=== PATIENT | male | born 1965 | race Caucasian/White ===

== ENCOUNTER 2018-06-08 16:53 | Inpatient (IN) | payer BC ==
[~2018-06-08] VITALS: Ht 177.8 cm; Wt 90.9 kg
[2018-06-08 17:01] VITALS: Ht 177.8 cm; Wt 90.9 kg
[2018-06-08 17:29] LABS: BASOPHIL % 0.7 % (0-2); PLATELET COUNT 165 x10^3mcL (130-400); RED CELL DISTRIBUTION WIDTH 14.3 % (11.5-14.5)
[2018-06-08 17:49] LABS: CALCIUM 8.3 mg/dL (8.5-10.1); CARBON DIOXIDE 23.9 mmol/L (21-32); CHLORIDE SERUM 105 mmol/L (98-107); CREATININE SERUM 0.9 mg/dL (0.7-1.3); GFR1 > 60 mL/min; GLUCOSE SERUM 95 mg/dL (74-106); POTASSIUM SERUM 3.9 mmol/L (3.5-5.1); SODIUM SERUM 143 mmol/L (136-145)
[2018-06-08 17:53] LABS: ALBUMIN 4.4 g/dL (3.4-5.0); ALKALINE PHOSPHATASE 167 U/L (46-116); ALT/SGPT 59 U/L (16-63); AST/SGOT 60 U/L (15-37); BILIRUBIN TOTAL 1.6 mg/dL (0.20-1.00); TOTAL PROTEIN, SERUM 7.7 g/dL (6.4-8.2)
[2018-06-08] MEDS ORDERED: ATENOLOL25 MG PO (19:36)
[2018-06-08] MEDS ORDERED: ASPIR 8181 MG PO (19:36)
[2018-06-08 20:22] VITALS: BP 146/74
[2018-06-08 20:28] LABS: MAGNESIUM 2.1 mg/dL (1.8-2.4); PHOSPHOROUS 3.7 mg/dL (2.5-4.9)
[2018-06-08 20:32] LABS: CHOLESTEROL/HDL RATIO 6.8
[2018-06-08 20:35] LABS: T3 TOTAL 0.68 ng/mL
[2018-06-08 20:55] LABS: FREE T4 0.82 ng/dL (0.76-1.46); FREE THYROXINE INDEX 2.4 ug/dL (1.4-4.5); T4(THYROXINE) 6.8 ug/dL (4.7-13.3)
[2018-06-09 05:01] VITALS: BP 141/78
[2018-06-09 06:03] LABS: microscopic required? YES; urine erythrocyte NEGATIVE (NEGATIVE)
[2018-06-09 06:20] LABS: AMPHETAMINE QUAL UR NONE DETECTED (See below)
[2018-06-09 06:31] LABS: BASOPHIL % 0 % (0-2); PLATELET COUNT 112 x10^3mcL (130-400); RED CELL DISTRIBUTION WIDTH 14.6 % (11.5-14.5)
[2018-06-09 07:17] LABS: CALCIUM 7.8 mg/dL (8.5-10.1); CARBON DIOXIDE 19.6 mmol/L (21-32); CHLORIDE SERUM 102 mmol/L (98-107); CREATININE SERUM 0.8 mg/dL (0.7-1.3); GFR1 > 60 mL/min; GLUCOSE SERUM 134 mg/dL (74-106); POTASSIUM SERUM 4.2 mmol/L (3.5-5.1); SODIUM SERUM 139 mmol/L (136-145)
[2018-06-09 08:30] VITALS: BP 152/81
[2018-06-09 09:34] VITALS: BP 141/78
[2018-06-09 12:39] VITALS: BP 118/65
[2018-06-09 18:16] VITALS: BP 120/58
[2018-06-09 20:42] VITALS: BP 135/71
[2018-06-10 06:15] VITALS: BP 119/69
[2018-06-10 06:58] LABS: CALCIUM 8.2 mg/dL (8.5-10.1); CARBON DIOXIDE 24.6 mmol/L (21-32); CHLORIDE SERUM 103 mmol/L (98-107); CREATININE SERUM 0.9 mg/dL (0.7-1.3); GFR1 > 60 mL/min; GLUCOSE SERUM 160 mg/dL (74-106); MAGNESIUM 1.9 mg/dL (1.8-2.4); PHOSPHOROUS 2.3 mg/dL (2.5-4.9); POTASSIUM SERUM 4.3 mmol/L (3.5-5.1); SODIUM SERUM 139 mmol/L (136-145)
[2018-06-10 07:20] LABS: BASOPHIL % 0 % (0-2); RED CELL DISTRIBUTION WIDTH 14.9 % (11.5-14.5)
[2018-06-10 07:22] LABS: PLATELET COUNT 89 x10^3mcL (130-400)
[2018-06-10 08:59] VITALS: BP 140/78
[2018-06-10] MEDS ORDERED: LAC PO (12:21)
[2018-06-10] MEDS ORDERED: LEVAQUIN500 M1 PO (12:21)
[2018-06-10] MEDS ORDERED: PRE20 PO (12:22)
[2018-06-10] MEDS ORDERED: PREDNISONE20 MG PO (12:23)
[2018-06-10] MEDS ORDERED: PROAIR HFA8.5 GM IH (12:24)
[2018-06-10] MEDS ORDERED: PREDNISONE10 MG PO (12:24)
[2018-06-10] MEDS ORDERED: ATENOLOL25 MG PO (12:25)
[2018-06-10 12:42] VITALS: BP 140/78
[2018-06-10 14:02] VITALS: BP 138/76
== END 2018-06-10 14:33 | disposition home or self-care (01) | DRG 190 ==
LOC: ED 16:53 → DU 19:30
PROVIDERS: Emergency Medicine; Internal Medicine
DX: J44.0 Chronic obstructive pulmonary disease with (acute) lower respiratory infection (principal); J18.9 Pneumonia, unspecified organism; E87.2 Acidosis; J44.1 Chronic obstructive pulmonary disease with (acute) exacerbation; F17.210 Nicotine dependence, cigarettes, uncomplicated; R74.0 Nonspecific elevation of levels of transaminase and lactic acid dehydrogenase [LDH]; E83.51 Hypocalcemia; F41.0 Panic disorder [episodic paroxysmal anxiety]; Z72.89 Other problems related to lifestyle; Z95.0 Presence of cardiac pacemaker; Z82.49 Family history of ischemic heart disease and other diseases of the circulatory system; Z80.1 Family history of malignant neoplasm of trachea, bronchus and lung; E78.5 Hyperlipidemia, unspecified; E80.6 Other disorders of bilirubin metabolism; I11.0 Hypertensive heart disease with heart failure; I50.811 Acute right heart failure; K80.20 Calculus of gallbladder without cholecystitis without obstruction; F41.9 Anxiety disorder, unspecified
CPT/HCPCS: 36600; 83880; 84439; 94150; J0456; J0696; J1200; J1885; J1956; J2060; J2405; J2920; J2930; J7030; J7050; J7613; J7620; J7626; Q0092; Q9967

== ENCOUNTER 2018-08-05 17:28 | Emergency (ER) | payer BC ==
[~2018-08-05] VITALS: Ht 177.8 cm; Wt 86.2 kg
[~2018-08-05 17:28] MED LIST: ASPIR 8181 MG PO; ATENOLOL25 MG PO; LAC PO; LEVAQUIN500 M1 PO; PRE20 PO; PREDNISONE10 MG PO; PREDNISONE20 MG PO; PROAIR HFA8.5 GM IH
[2018-08-05 17:38] VITALS: BP 147/86; Ht 177.8 cm; Wt 86.2 kg
== END 2018-08-05 21:09 | disposition left against medical advice (07) ==
LOC: ED 17:28
DX: Z53.21 Procedure and treatment not carried out due to patient leaving prior to being seen by health care provider (principal)

== ENCOUNTER 2018-10-16 08:58 | Inpatient (IN) | payer BC ==
[~2018-10-16] VITALS: Ht 177.8 cm; Wt 93.4 kg
[2018-10-16 09:05] VITALS: Ht 177.8 cm; Wt 93.4 kg
[2018-10-16 09:41] LABS: BASOPHIL % 0.6 % (0-2)
[2018-10-16 09:47] LABS: PLATELET COUNT 110 x10^3mcL (130-400); RED CELL DISTRIBUTION WIDTH 14.8 % (11.5-14.5)
[2018-10-16 09:57] LABS: microscopic required? NO
[2018-10-16 10:11] LABS: ALBUMIN 4.1 g/dL (3.4-5.0); ALKALINE PHOSPHATASE 152 U/L (46-116); ALT/SGPT 66 U/L (16-63); AMYLASE 48 U/L (25-115); AST/SGOT 68 U/L (15-37); BILIRUBIN TOTAL 1.45 mg/dL (0.20-1.00); CALCIUM 8.4 mg/dL (8.5-10.1); CARBON DIOXIDE 26.3 mmol/L (21-32); CHLORIDE SERUM 109 mmol/L (98-107); CHOLESTEROL 199 mg/dL (<200); CREATININE SERUM 0.8 mg/dL (0.7-1.3); GFR1 > 60 mL/min; GLUCOSE SERUM 105 mg/dL (74-106); HDL CHOLESTEROL 35 mg/dL (40-60); LIPASE 114 IU/L (73-393); POTASSIUM SERUM 3.8 mmol/L (3.5-5.1); SODIUM SERUM 145 mmol/L (136-145); TOTAL PROTEIN, SERUM 7.5 g/dL (6.4-8.2)
[2018-10-16 10:29] LABS: UA SPECIFIC GRAVITY <=1.005 (1.005-1.035); urine erythrocyte NEGATIVE (NEGATIVE)
[2018-10-16 10:38] LABS: AMPHETAMINE QUAL UR NONE DETECTED (See below)
[2018-10-16] MEDS ORDERED: ATIVAN2 MG (11:39)
[2018-10-16 13:57] LABS: T3 TOTAL 0.85 ng/mL
[2018-10-16 14:01] VITALS: BP 126/77
[2018-10-16 14:05] LABS: MAGNESIUM 1.7 mg/dL (1.8-2.4); PHOSPHOROUS 3.7 mg/dL (2.5-4.9)
[2018-10-16 14:20] LABS: FREE T4 1.02 ng/dL (0.76-1.46); FREE THYROXINE INDEX 2.1 ug/dL (1.4-4.5); T4(THYROXINE) 5.9 ug/dL (4.7-13.3)
[2018-10-16 17:18] VITALS: BP 114/69
[2018-10-16 20:41] VITALS: BP 111/62
[2018-10-17 05:17] VITALS: BP 130/73
[2018-10-17 06:40] LABS: CALCIUM 9.2 mg/dL (8.5-10.1); CARBON DIOXIDE 26.3 mmol/L (21-32); CHLORIDE SERUM 104 mmol/L (98-107); GFR1 > 60 mL/min; GLUCOSE SERUM 99 mg/dL (74-106); MAGNESIUM 1.9 mg/dL (1.8-2.4); PHOSPHOROUS 4.4 mg/dL (2.5-4.9); SODIUM SERUM 141 mmol/L (136-145)
[2018-10-17 08:03] LABS: BASOPHIL % 0.4 % (0-2); PLATELET COUNT 90 x10^3mcL (130-400); RED CELL DISTRIBUTION WIDTH 15.2 % (11.5-14.5)
[2018-10-17 08:35] VITALS: BP 131/80
[2018-10-17 12:22] VITALS: BP 142/84
[2018-10-17] MEDS ORDERED: ATIVAN2 MG PO (14:32)
[2018-10-17] MEDS ORDERED: FOL1 PO (14:34)
[2018-10-17] MEDS ORDERED: THERA-M CAPLET1 EACH PO (14:35)
[2018-10-17] MEDS ORDERED: THI100 PO (14:35)
[2018-10-17 15:21] VITALS: BP 142/84
== END 2018-10-17 16:38 | disposition home or self-care (01) | DRG 432 ==
LOC: ED 08:58 → DU 12:15
PROVIDERS: Emergency Medicine; Internal Medicine
DX: K70.9 Alcoholic liver disease, unspecified (principal); G92 Toxic encephalopathy; F41.9 Anxiety disorder, unspecified; I10 Essential (primary) hypertension; F10.229 Alcohol dependence with intoxication, unspecified; Z60.2 Problems related to living alone; D69.59 Other secondary thrombocytopenia; E78.5 Hyperlipidemia, unspecified; E83.42 Hypomagnesemia; E83.51 Hypocalcemia; Y90.0 Blood alcohol level of less than 20 mg/100 ml; Z95.0 Presence of cardiac pacemaker; Z79.899 Other long term (current) drug therapy; Z82.49 Family history of ischemic heart disease and other diseases of the circulatory system; Z71.41 Alcohol abuse counseling and surveillance of alcoholic
CPT/HCPCS: 83880; 84439; G0480; J2060; J2405; J7030; Q0092

== ENCOUNTER 2018-12-16 03:11 | Emergency (ER) | payer BC ==
[~2018-12-16] VITALS: Ht 177.8 cm; Wt 90.7 kg
[~2018-12-16 03:11] MED LIST changes: +ATIVAN2 MG; +ATIVAN2 MG PO; +FOL1 PO; +THERA-M CAPLET1 EACH PO; +THI100 PO
[2018-12-16 03:19] VITALS: Ht 177.8 cm; Wt 90.7 kg
[2018-12-16 05:01] VITALS: BP 120/72
== END 2018-12-16 05:01 | disposition home or self-care (01) ==
LOC: ED 03:11
DX: R06.00 Dyspnea, unspecified (principal); F41.9 Anxiety disorder, unspecified; I10 Essential (primary) hypertension
CPT/HCPCS: J2060; Q0092

== ENCOUNTER 2018-12-18 10:25 | Emergency (ER) | payer BC ==
[~2018-12-18] VITALS: Ht 177.8 cm; Wt 2.6 kg
[2018-12-18 10:32] VITALS: Ht 177.8 cm; Wt 2.6 kg
[2018-12-18 11:37] LABS: BASOPHIL % 1.1 % (0-2)
[2018-12-18 11:39] LABS: PLATELET COUNT 74 x10^3mcL (130-400)
[2018-12-18 11:43] LABS: CALCIUM 8.7 mg/dL (8.5-10.1); CARBON DIOXIDE 21.3 mmol/L (21-32); CHLORIDE SERUM 99 mmol/L (98-107); CREATININE SERUM 0.9 mg/dL (0.7-1.3); GFR1 > 60 mL/min; GLUCOSE SERUM 109 mg/dL (74-106); POTASSIUM SERUM 3.8 mmol/L (3.5-5.1); SODIUM SERUM 136 mmol/L (136-145)
[2018-12-18 11:47] LABS: ALBUMIN 4.6 g/dL (3.4-5.0); ALKALINE PHOSPHATASE 246 U/L (46-116); ALT/SGPT 77 U/L (16-63); AST/SGOT 121 U/L (15-37); BILIRUBIN TOTAL 1.5 mg/dL (0.20-1.00); TOTAL PROTEIN, SERUM 7.1 g/dL (6.4-8.2)
[2018-12-18 12:36] VITALS: BP 131/82
== END 2018-12-18 12:36 | disposition home or self-care (01) ==
LOC: ED 10:25
PROVIDERS: Emergency Medicine
DX: R07.89 Other chest pain (principal); F41.9 Anxiety disorder, unspecified; I10 Essential (primary) hypertension; F10.239 Alcohol dependence with withdrawal, unspecified; F17.210 Nicotine dependence, cigarettes, uncomplicated; Z98.890 Other specified postprocedural states; Z48.812 Encounter for surgical aftercare following surgery on the circulatory system; Y90.9 Presence of alcohol in blood, level not specified
CPT/HCPCS: 99406; J2060; J7030; Q0092